=== PATIENT | male | born 1970 | race Caucasian/White ===

== ENCOUNTER → 2019-10-05 | Day surgery (SDC) | payer OTHER ==
[~2019-10-05] MED LIST: AMBIEN10 MG PO; BENICAR20 MG PO; KETAMINE HCL INJ 50 MG/ML 10 ML VIAL ONE; LIDOCAINE HCL 2% LOCAL INJ 5 ML SDV VIAL INJ ONE; LIPITOR10 MG PO; LOSARTAN POTAS100 MG PO; METOCLOPRAMIDE HCL 10 MG/2ML VIAL ONE; MIDAZOLAM HCL 2 MG/2 ML VIAL ONE; NORVASC5 MG PO; OMEPRAZOLE40 MG PO; PANTOPRAZOLE 40 MG 10ML VIAL ONE; PAXIL40 MG PO; PRINZIDE 20-121 EACH PO; PROPOFOL IV EMULSION 10 MG/ML 20 ML VIAL ONE; SODIUM CHLORIDE 0.9% INJ 10 ML VIAL ONE; VIT B PO; VIT D PO
--- OUTSIDE RECORDS SUMMARY | 2019-10-05 06:13 | XMS REPORT | Summary of Care ---
Author Author MILLICENT Perera, JACQUELYN GRAVES Organization Unknown Address Unknown Phone Unavailable Care Team Providers Care Button Machine Operator Name Role Phone TRENT OLIVO, MARC Unavailable Unavailable BRADEN HAYES, PO Unavailable Unavailable Unavailable Unavailable Functional Status Name Dates Details Functional status health issues are not documented Status: Name Dates Details Cognitive status health issues are not d ocumented Status: Problems Name Dates Details Abdominal pain (789.00, R10.9) Status: Active Medications Name Dates Details Medications not documented Allergies and Adverse Reactions Name Dates Details Allergy history not documented Status: Procedures Procedure Dates Details CT Abdomen/Pelvis w contrast [id number] Date: 10-Mar-2019 Immunization Name Dates Details Immunizations not documented Social History Name Dates Details Unknown if ever smoked Vital Signs Date Test Result Details No Known Vitals to report Results Date Description Value Details [id number]:10 [[facility]] VITAMIN D, 25-HYDROXY, LC/MS/MS Vitamin D, 25-OH, Total 10.9 ng/ml (Below low t hreshold) Range: 30.0-100.0 Comments: Reference range is based on recommendations in the EndocrineSociety Clinical Practice Guideline (J Clin Endocrinol Alctb2256;96:2246-9756) 29-Xeo-514127:10 [QL] LIPID PANEL Chol 138 mg/dl Range: <=199 Trig 119 mg/dl Range: <=149 HDL Cholesterol 46 mg/dl (Below low threshold) Range: >=61 LDL 68 mg/dl Range: <=99 VLDL 24 CHD Risk 3.00 (Below low threshold) Ran ge: 4.00-7.30 07-Gzh-637479:10 [QL] TSH, 3RD GENERATION W/REFLEX TO FT 4 TSH 1.430 {uIU/ml} Range: 0.360-3.7 40 01-Clp-562381:10 [QL] VITAMIN B12 Vitamin B12 Level 218 pg/ml (Below low threshol d) Range: 254-1320 15-Trf-151249:10 [QL] IRON AND TOTAL IRON BINDING CAPACI TY Iron 120 ug/dL Range: 45-160 % Satur Fe 35 % Range: 12-57 TIBC 340 ug/dL Range: 228-428 UIBC 220 ug/dL Range: 110-370 93-Ewb-503037:10 [[facility]] CMP W/EGFR Sodium Level 142 {mEq/l} Range: 135-145 Potassium Level 4.1 {mEq/l} Range: 3.5-5.1 Chloride Level 110 {mEq/l} (Above high thresho ld) Range: 95-109 Carbon Dioxide 26 {mEq/l} Range: 24-32 AGAP 10.1 {mEq/l} Range: 10.0-20.0 Glucose Lvl 87 mg/dl Range: 70-99 Comments: Adult reference range values reflect the clinical guidelinesof the [place] Diabetes Association. Creatinine Lvl 0.90 mg/dl Range: 0.50-1.40 Blood Urea Nitrogen 13 mg/dl Range: 7-22 BUN/Creatinine Ratio 14 Range: 6-25 Total Protein 6.6 g/dl Range: 6.4-8.4 Albumin Lvl 4.1 g/dl Range: 3.5-5.0 Globulin 2.5 g/dl (Below low threshold) Range: 2.7-4.2 A/G Ratio 1.6 Range: 0.7-1.6 Calcium Level Total 8.8 mg/dl Range: 8.5-1 0.5 ALT 48 u/l Range: 0-65 AST 28 u/l Range: 0-37 Bili Total 1.7 mg/dl (Above high threshold ) Range: 0.2-1.3 Alk Phos 117 u/l Range: 39-136 Comments: The pediatric reference ranges for this test represent a CLSI- basedtransference of the CALIPER database of pediatric reference intervals to the[facility] analyzer (Clinical Biochemistry 46 (2013): 8900-1773). [facility] [employer] has not internally validated these referenceranges and therefore they should be used only in the context of a thoroughclinical assessment. eGFR 101 {ML/MIN/1.7} Comments: The eGFR is calculated using the CKD-EPI formula. In most young, healthyindividuals the eGFR will be >90 mL/min/1.73m2. The eGFR declines with age. AneGFR of 60-89 may be normal in some populations, particularly the elderly, forwhom the CKD-EPI formula has not been extensively validated. Use of the eGFR isnot recommended in the following populations:Individuals with unstable creatinine concentrations, including patients and those with serious co-morbid conditions.Patients with extremes in muscle mass or diet.The data above are obtained from the National Kidney Disease Education Program(NKDEP) which additionally recommends that when the eGFR is used in patientswith extremes of body mass index for purposes of drug dosing, the eGFR shouldbe multiplied by the estimated BMI. :10 [[facility]] FOLATE, SERUM Folate Level 16.0 ng/ml Range: >=3.0 :10 [[facility]] HEMOGLOBIN A1c Hemoglobin A1c 5.2 % Range: <=5.6 :10 [[facility]] PTH, INTACT (WITHOUT CALCIUM) Parathyroid Hormone Intact 118.5 pg/ml (Above h igh threshold) Range: 18.4-80.1 :10 [[facility]] CBC (INCLUDES DIFF/PLT) WBC 7.2 {K/CMM} Range: 3.7-10.4 RBC 4.63 {M/CMM} (Below low thresho ld) Range: 4.70-6.10 Hgb 15.1 g/dl Range: 14.0-18.0 Hct 44.9 % Range: 42.0-54.0 MCV 96.9 fL (Above high threshold) Range: 80.0-94.0 MCH 32.5 pg (Above high threshold) Range: 27.0-31.0 MCHC 33.6 g/dl Range: 32.0-36.0 RDW 12.3 % Range: 11.5-14.5 Platelet 176 {K/CMM} Range: 133-450 Mean Platelet Volume 10.1 fL Range: 7.4- 10.4 :10 [[facility]] Differential Segmented Neutrophils 67.2 % Range: 45. 0-75.0 Monocytes 9.7 % Range: 2.0-12.0 Lymphocytes 21.5 % Range: 20.0-40.0 Eosinophils 1.1 % Range: 0.0-4.0 Basophils 0.5 % Range: 0.0-1.0 Segs-Bands # 4.9 {K/CMM} Range: 1.5-8.1 Lymphocytes # 1.6 {K/CMM} Range: 1.0-5.5 Monocytes # 0.7 {K/CMM} Range: 0.0-0.8 Eosinophils # 0.1 {K/CMM} Range: 0.0-0.5 :10 [H] Vitamin E Lvl Alpha-Tocopherol 8.8 mg/L Range: 7.0-25.1 Comments: This test was developed and its performance characteristicsdetermined by [employer]. It has not been cleared orapproved by the Food and Drug Administration. Gamma-Tocopherol 1.5 mg/L Range: 0.5-5.5 Comments: This test was developed and its performance characteristicsdetermined by [employer]. It has not been cleared orapproved by the Food and Drug Administration.Reference intervals for alpha and gamma-tocopheroldetermined from National Health and Nutrition ExaminationSurvey, 2131-1562. Individuals with alpha-tocopherol levelsless than 5.0 mg/L are considered vitamin E deficient.Performed At: [address] [id number] Saldaña MD Ph:[phone] 46-Bvp-611699:10 [H] Vit A Vitamin A Level 36.5 ug/dL Range: 20.1-62.0 Comments: Reference intervals for vitamin A determined from LabCorpinternal studies. Individuals with vitamin A less than 20ug/dL are considered vitamin A deficient and those withserum concentrations less than 10 ug/dL are consideredseverely deficient.This test was developed and its performance characteristicsdetermined by [employer]. It has not been cleared orapproved by the Food and Drug Administration.Performed At: [address] [id number] Saldaña MD Ph:[phone] 64-Ntg-683234:10 [[facility]] VITAMIN B1, WHOLE BLOOD Vitamin B1 Level 134.3 nmol/L Range: 66.5-200 .0 Comments: This test was developed and its performance characteristicsdetermined by [employer]. It has not been cleared orapproved by the Food and Drug Administration.Performed At: [address] [id number] Saldaña MD Ph:[phone] Plan of Care Name Dates Details Planned Observations Planned Goals not documented Instructions Name Dates Details Instructions not documented Encounters Appointment; PO FELICIANO M.D. Encounter Diagnosis: Problem not documented On: 10-Mar-2019 15:00 Appointment; WILLIE [address] Encounter Diagnosis: Problem not documented On: 26-Mar-2019 12:00
--- OUTSIDE RECORDS SUMMARY | 2019-10-05 06:13 | XMS REPORT ---
Author Author [facility] Organization [facility] Address Unknown Phone Unavailable Care Team Providers Care Stuffed Casing Tier Name Role Phone [address]IE [address] Unavailable Unavailable PO FELICIANO M.D. Unavailable Unavailable Problems Condition Name Condition Details Condition Category Status Onset Date Resolution Date Last Treatment Date Treating Clinician Comments Abdominal pain Abdominal pain Problem Active Allergies, Adverse Reactions, Alerts This patient has no known allergies or adverse reactions. Medications This patient has no known medications. Vital Signs Vital Name Observation Time Observation Value Comments BP Systolic 2019-03-10 15:44:00 176 mm[Hg] Location: [facility]; Position: Sitting BP Diastolic 2019-03-10 15:44:00 89 mm[Hg] Location: [facility]; Position: Sitting Height 2019-03-10 15:44:00 67 [in_us] Weight 2019-03-10 15:44:00 378.4 [lb_av] Temperature 2019-03-10 15:44:00 97.9 [degF] Method: Oral Heart Rate 2019-03-10 15:44:00 63 /min Procedures and Interventions Procedure Date / Time Performed Performing Clinici an CT Abdomen/Pelvis w contrast [id number] 2019-03-10 00:00:00 Encounters Start Date/Time End Date/Time Encounter Type Admission Type Attendi [facility] Care Department Encounter ID 2019-03-26 12:00:00 2019-03-26 12:00:00 Appointment; ELINA [address]FIELD RD CAMISCIONE, CASSIDY, [facility] [id number] 2019-03-10 15:00:00 2019-03-10 15:00:00 Appointment; PO FELICIANO M.D. WILSON, ERIK, M.D. [facility] ([facility]) [id number] Results Test Description Test Time Test Comments Text Results Atomic Results Result Comments [[facility]] VITAMIN D, 25-HYDROXY, LC/MS/MS 2019-03-26 13:10:01 Vitamin D, 25-OH, Total (test code = Vitamin D, 25-OH, Total ) 10.9 ng/ml 30.0-100.0 Reference range is based on recommendati ons in the EndocrineSociety Clinical Practice Guideline (J Clin Endocrinol Ulabt7874;96:4108-6368) [QL] LIPID [id number] 13:10:01* Test Item Value Reference Range Comments Chol (test code = 2092-3) 138 mg/dl <=199 Trig (test code = 2571-8) 119 mg/dl <=149 HDL Cholesterol; Below Low Threshold (test code = 2084-9) 46 mg/ dl >=61 LDL (test code = 64670-5) 68 mg/dl <=99 VLDL (test code = VLDL) 24 CHD Risk; Below Low Threshold (test code = 45371-6) 3.00 4.00-7.30 [QL] TSH, 3RD GENERATION W/REFLEX TO [id number] 13:10:01* Test Item Value Reference Range Comments TSH (test code = 68504-5) 1.430 {uIU/ml} 0.360-3.740 [[facility]] VITAMIN [id number] 13:10:01* Test Item Value Reference Range Comments Vitamin B12 Level; Below Low Threshold (test code = 2131-9) 218 pg/ml 254-1320 [QL] IRON AND TOTAL IRON BINDING [id number] 13:10:01* Test Item Value Reference Range Comments Iron (test code = 2498-4) 120 ug/dL 45-160 % Satur Fe (test code = 2502-3) 35 % 12-57 TIBC (test code = 2500-7) 340 ug/dL 228-428 UIBC (test code = UIBC) 220 ug/dL 110-370 [[facility]] CMP [id number] 13:10:01* Test Item Value Reference Range Comments Sodium Level (test code = 2951-2) 142 {mEq/l} 135-145 Potassium Level (test code = 2823-3) 4.1 {mEq/l} 3.5-5.1 Chloride Level; Above High Threshold (test code = 2074-0) 110 {m Eq/l} 95-109 Carbon Dioxide (test code = 2027-9) 26 {mEq/l} 24-32 AGAP (test code = 12248-8) 10.1 {mEq/l} 10.0-20.0 Glucose Lvl (test code = 2345-7) 87 mg/dl 70-99 Adult reference range values reflect the clinical guidelinesof the [place] Diabetes Association. Creatinine Lvl (test code = 2160-0) 0.90 mg/dl 0.50-1.40 Blood Urea Nitrogen (test code = 3094-0) 13 mg/dl 7-22 BUN/Creatinine Ratio (test code = 3097-3) 14 6-25 Total Protein (test code = 2885-2) 6.6 g/dl 6.4-8.4 Albumin Lvl (test code = 1751-7) 4.1 g/dl 3.5-5.0 Globulin; Below Low Threshold (test code = 28026-8) 2.5 g/dl 2.7-4.2 A/G Ratio (test code = 1759-0) 1.6 0.7-1.6 Calcium Level Total (test code = 36764-4) 8.8 mg/dl 8.5-10 .5 ALT (test code = 1743-4) 48 u/l 0-65 AST (test code = 86746-6) 28 u/l 0-37 Bili Total; Above High Threshold (test code = 1975-2) 1.7 mg/dl 0.2-1.3 Alk Phos (test code = 1783-0) 117 u/l 39-136 Th e pediatric reference ranges for this test represent a CLSI-basedtransference of the CALIPER database of pediatric reference intervals to the[facility] analyzer (Clinical Biochemistry 46 (2013): 9425-4398). [facility] [employer] has not internally validated these referenceranges and therefore they should be used only in the context of a thoroughclinical assessment. eGFR (test code = 44454-7) 101 {ML/MIN/1.7} The eGFR is calculated using the CKD-EPI [...] eGFR shouldbe multiplied by the estimated BMI. [[facility]] FOLATE, [id number] 13:10:01* Test Item Value Reference Range Comments Folate Level (test code = 2284-8) 16.0 ng/ml >=3.0 [[facility]] HEMOGLOBIN [id number] 13:10:01* Test Item Value Reference Range Comments Hemoglobin A1c (test code = 4548-4) 5.2 % <=5.6 [[facility]] PTH, INTACT (WITHOUT CALCIUM)2019-03-26 13:10:01* Test Item Value Reference Range Comments Parathyroid Hormone Intact; Above High Threshold (test code = 2731-8) 118.5 pg/ml 18.4-80.1 [[facility]] CBC (INCLUDES DIFF/PLT)2019-03-26 13:10:01* Test Item Value Reference Range Comments WBC (test code = 6690-2) 7.2 {K/CMM} 3.7-10.4 RBC; Below Low Threshold (test code = 789-8) 4.63 {M/CMM} 4.7 0-6.10 Hgb (test code = 718-7) 15.1 g/dl 14.0-18.0 Hct (test code = 44178-5) 44.9 % 42.0-54.0 MCV; Above High Threshold (test code = 787-2) 96.9 fL 80 .0-94.0 MCH; Above High Threshold (test code = 785-6) 32.5 pg 27 .0-31.0 MCHC (test code = 786-4) 33.6 g/dl 32.0-36.0 RDW (test code = 788-0) 12.3 % 11.5-14.5 Platelet (test code = 90894-5) 176 {K/CMM} 133-450 Mean Platelet Volume (test code = 57029-8) 10.1 fL 7.4-1 0.4 [[facility]] [id number] 13:10:01* Test Item Value Reference Range Comments Segmented Neutrophils (test code = 82327-3) 67.2 % 45.0 -75.0 Monocytes (test code = 17807-3) 9.7 % 2.0-12.0 Lymphocytes (test code = 85251-3) 21.5 % 20.0-40.0 Eosinophils (test code = 05325-0) 1.1 % 0.0-4.0 Basophils (test code = 706-2) 0.5 % 0.0-1.0 Segs-Bands # (test code = 32728-0) 4.9 {K/CMM} 1.5-8.1 Lymphocytes # (test code = 09110-0) 1.6 {K/CMM} 1.0-5.5 Monocytes # (test code = 27264-5) 0.7 {K/CMM} 0.0-0.8 Eosinophils # (test code = 52399-7) 0.1 {K/CMM} 0.0-0.5 [H] Vitamin E [id number] 13:10:01* Test Item Value Reference Range Comments Alpha-Tocopherol (test code = Alpha-Tocopherol) 8.8 mg/L 7.0-25.1 This test was developed and its performance characteristicsdetermined by [employer]. It has not been cleared orapproved by the Food and Drug Administration. Gamma-Tocopherol (test code = Gamma-Tocopherol) 1.5 mg/L 0.5-5.5 This test was developed and its performance characteristicsdetermined by [employer]. It has not been cleared orapproved by the Food and Drug Administration.Reference intervals for alpha and gamma-tocopheroldetermined from National Health and Nutrition ExaminationSurvey, 8012-2867. Individuals with alpha-tocopherol levelsless than 5.0 mg/L are considered vitamin E deficient.Performed At: [facility] [id number] [place], [place] [id number] Sanjai MD Ph:[phone] [H] Vit [id number] 13:10:01* Test Item Value Reference Range Comments Vitamin A Level (test code = Vitamin A Level) 36.5 ug/dL 20 .1-62.0 Reference intervals for vitamin A determined from LabCorpinternal studies. Individuals with vitamin A less than 20ug/dL are considered vitamin A deficient and those withserum concentrations less than 10 ug/dL are consideredseverely deficient.This test was developed and its performance characteristicsdetermined by [employer]. It has not been cleared orapproved by the Food and Drug Administration.Performed At: [address] [id number] Saldaña MD Ph:[phone] [[facility]] VITAMIN B1, WHOLE [id number] 13:10:01* Test Item Value Reference Range Comments Vitamin B1 Level (test code = Vitamin B1 Level) 134.3 nmol/L 66.5-200.0 This test was developed and its performance characteristicsdetermined by [employer]. It has not been cleared orapproved by the Food and Drug Administration.Performed At: [address] [id number] Saldaña MD Ph:[phone]
[2019-10-05 09:10] VITALS: BP 133/81
--- NOTE | 2019-10-05 09:14 | Operative Report ---
DATE OF PROCEDURE: 10/05/2019 SURGEON: Dave Espinoza MD PROCEDURE: EGD with esophageal dilatation and biopsies. INDICATIONS FOR EGD: Dysphagia, burning retrosternal chest pain. MEDICATIONS: The patient was done under MAC, please see anesthesiologist's note. PROCEDURE IN DETAIL: With the patient in left lateral decubitus position, a flexible fiberoptic Olympus gastroscope was introduced into the esophagus under direct visualization without any difficulty. There were some patchy erythema noted in the distal esophagus. The esophagus was then dilated to size 52-Mozambican Shafer. The scope was then advanced with ease into the stomach traversing a small hiatal hernia. The patient is status post Madan-en-Y, anastomosis was intact. A minute submucosal nodule was noted in the gastric cuff, that was biopsied. The enteric loop was patent and biopsies were obtained. The scope was then withdrawn back into above the anastomosis and was retroflexed, and some postoperative changes were noted. The scope was then straightened out, it was subsequently withdrawn. The patient tolerated the procedure well. IMPRESSION: 1. Distal esophagitis, mild. 2. Esophagus dilated to size 52-Mozambican Shafer. 3. Small hiatal hernia. 4. Status post Madan-en-Y. Anastomosis intact. No marginal ulcers. PLAN: Follow up histology. Increase omeprazole to 40 mg one p.o. before meals b.i.d. and initiate Carafate 1 g p.o. before meals t.i.d. and at bedtime. Dave Espinoza MD [facility] [place] /[id number] cc: Kaiden Pearl DO
== END | disposition home or self-care (01) ==
LOC: OR 06:05
PROVIDERS: ATTEND Internal Medicine Gastroenterology
DX: K20.9 Esophagitis, unspecified (principal); K21.9 Gastro-esophageal reflux disease without esophagitis; K44.9 Diaphragmatic hernia without obstruction or gangrene; K31.89 Other diseases of stomach and duodenum; Z98.84 Bariatric surgery status; I10 Essential (primary) hypertension; E78.5 Hyperlipidemia, unspecified; R07.2 Precordial pain; Z01.810 Encounter for preprocedural cardiovascular examination; Z01.812 Encounter for preprocedural laboratory examination; Z11.59 Encounter for screening for other viral diseases; Z68.43 Body mass index [BMI] 50.0-59.9, adult
CPT/HCPCS: 43239; 43450; 87635; 93005; C9113; J2001; J2250; J2704; J2765

== ENCOUNTER → 2023-04-03 | Day surgery (SDC) | payer OTHER ==
[~2023-04-03] MED LIST changes: +ALPRAZOLAM1 MG PO; +ESCITALOPRAM OX20 MG PO; +FENTANYL CITRATE/PF 100MCG/2 ML INJ ONE; +GLUCAGON FOR INJ 1 MG VIAL ONE; -KETAMINE HCL INJ 50 MG/ML 10 ML VIAL ONE; +LACTATED RINGER'S 1,000 ML ONE; +LIDOCAINE HCL 1% 2 ML AMP ONE; +MELOXICAM15 MG PO; +METOPROLOL SUCC50 MG PO; +NIFEDIPINE ER30 M1 PO; -PANTOPRAZOLE 40 MG 10ML VIAL ONE; +PRAVASTATIN SOD20 MG PO; +PROPOFOL IV EMULSION 10 MG/ML 50 ML VIAL IV ONE; -SODIUM CHLORIDE 0.9% INJ 10 ML VIAL ONE; +SUCRALFATE1 GM PO; +TRICOR48 MG PO
[2023-04-03 10:58] VITALS: TEMP 98.3
[2023-04-03 11:20] VITALS: BP 143/80; PULSE 82; RESP 12; O2SAT 98
== END | disposition home or self-care (01) ==
LOC: OR 09:13
PROVIDERS: ATTEND Internal Medicine Gastroenterology
DX: Z12.11 Encounter for screening for malignant neoplasm of colon (principal); D12.2 Benign neoplasm of ascending colon; K20.90 Esophagitis, unspecified without bleeding; K44.9 Diaphragmatic hernia without obstruction or gangrene; K21.9 Gastro-esophageal reflux disease without esophagitis; K57.30 Diverticulosis of large intestine without perforation or abscess without bleeding; K64.8 Other hemorrhoids; Z98.84 Bariatric surgery status; Z71.3 Dietary counseling and surveillance; G47.33 Obstructive sleep apnea (adult) (pediatric); I10 Essential (primary) hypertension; Z71.89 Other specified counseling; E78.5 Hyperlipidemia, unspecified; R09.89 Other specified symptoms and signs involving the circulatory and respiratory systems; E66.01 Morbid (severe) obesity due to excess calories; F41.9 Anxiety disorder, unspecified; Z01.810 Encounter for preprocedural cardiovascular examination; Z79.899 Other long term (current) drug therapy; Z79.1 Long term (current) use of non-steroidal anti-inflammatories (NSAID); Z68.44 Body mass index [BMI] 60.0-69.9, adult
CPT/HCPCS: 43239; 43450; 45385; 93005; C9113; J1610; J2001 ×2; J2250; J2704 ×2; J2765; J3010; J7121; 45378